=== PATIENT | male | born 1950 | race Caucasian/White ===

== ENCOUNTER → 2023-09-16 08:35 | Outpatient (CLI) | payer MEDICARE, OTHER, SELFPAY ==
[2023-09-16 09:07] LABS: Estimated Glomerular Filt Rate 49 mL/min (>60)
--- NOTE | 2023-09-16 09:19 | DI.CT.S_ITS ---
PROCEDURE: CT ANGIO CHEST INDICATIONS: Thoracic aortic ectasia TECHNIQUE: After the administration of intravenous contrast, 2 mm thick sections acquired from the pulmonary apices to the posterior costophrenic angles. 3-dimensional maximum intensity projection (MIP) coronal and sagittal reformats were then acquired through the thorax. For radiation dose reduction, the following was used: automated exposure control, adjustment of mA and/or kV according to patient size. COMPARISON: None. FINDINGS: Image quality: Diagnostic. Aorta, pulmonary arteries: Atherosclerotic vascular calcifications throughout the aorta without evidence of thoracic aortic aneurysm or dissection. Thoracic aorta measures maximum of 3.7 cm in thickness. Pulmonary arteries are normal in size. Lower Neck: No enlarged lymph nodes. Thyroid: No thyroid nodules which require sonographic follow up, per consensus guidelines. Axillae: No enlarged lymph nodes. Chest Wall: Unremarkable. Bones: Severe degenerative disc disease in the region of C6-C7 with disc space destruction, osteophytes, subchondral sclerosis and cystg Lungs and Pleura: No pneumothorax or pleural effusions. No consolidation or suspicious nodules. 3 mm left juxtapleural nodule, benign (253/5). Heart: Heart size is normal. No pericardial effusion. Thoracic Vessels: No aortic aneurysm. Descending aorta measures 3.6 cm in maximum dimension. Moderate atherosclerotic vascular calcifications are seen. Mediastinum and Shyanne: No enlarged lymph nodes. Esophagus: No wall thickening. No hiatal hernia. Upper Abdomen: Visualized upper abdomen solid organs and bowel loops appear normal. IMPRESSION: 1. Ascending thoracic aorta measures 3.7 cm in maximum dimension; no evidence of significant ectasia 2. Severe atherosclerotic vascular calcifications throughout the aorta 3. Severe degenerative disc disease in the region of C6-C7 of the C-spine 1. Dictated by: Favian Vázquez M.D. on 10/07/2023 at 11:01 Approved by: Favian Vázquez M.D. on 10/07/2023 at 11:42
== END ==
PROVIDERS: Radiology Diagnostic Radiology; PCP Physician Assistant; Referring Provider Internal Medicine Cardiovascular Disease; Visit Provider Internal Medicine Cardiovascular Disease
DX: I77.810 Thoracic aortic ectasia (principal); I70.0 Atherosclerosis of aorta; M50.323 Other cervical disc degeneration at C6-C7 level
CPT/HCPCS: 36415; 71275; 82565

== ENCOUNTER → 2024-08-15 12:24 | Outpatient (CLI) | payer MEDICARE, OTHER, SELFPAY ==
--- NOTE | 2024-08-15 12:26 | DI.ECHO.S_ITS ---
[facility]+ [facility] : : [address] : : [place] : : [id number] : : Phone: [phone] Echocardiogram Report + + :Name: MAYRA NORTH Study Date: 08/15/2024 Height: 67 in : :[facility] ReadingLocation: Weight: 167 lb : : Gender: Male BSA: 1.9 m2 : :: 1950 Age: 74 yrs BP: 136/79 mmHg: :Reason For Study: CARDIAC ARRHYTHMIA : :Ordering Physician: JOSH, : :JINNY Heck Performed By: Sonia Ball : :Referring: JINNY NELSON : + + Interpretation Summary The ejection fraction is estimated to be 60-65%. Diastolic parameters suggest probable normal left ventricular diastolic function and normal filling pressures. The left atrium is mildly dilated. The right ventricle is normal in size and function. There is mild tricuspid regurgitation. The right ventricular systolic pressure is estimated to be at least 31 mmHg based on an estimated right atrial pressure of 3 mm Hg. Compared to the prior study dated 02/19/2023, the right ventricle no longer appears dilated. Procedure: A two-dimensional transthoracic echocardiogram with color flow and Doppler was performed. The study quality was technically adequate. Comparison is made with the echocardiogram of 02/19/2023. The patient was in sinus bradycardia with heart rates between 52-60 bpm during the exam. Left Ventricle: The left ventricle is normal in size and wall thickness. The ejection fraction is estimated to be 60-65%. Diastolic parameters suggest probable normal left ventricular diastolic function and normal filling pressures. Right Ventricle: The right ventricle is normal in size and function. Atria: The left atrium is mildly dilated. Right atrial size is normal. There is no Doppler evidence for an interatrial shunt. Mitral Valve: The mitral valve leaflets appear mildly thickened, but open well. The mitral valve leaflets appear to open well. There is trace mitral regurgitation. Aortic Valve: The aortic valve is trileaflet. The aortic valve opens well. There is no aortic valve stenosis. No aortic regurgitation is present. Tricuspid Valve: The tricuspid valve leaflets are thin and pliable. There is mild tricuspid regurgitation. The right ventricular systolic pressure is estimated to be at least 31 mmHg based on an estimated right atrial pressure of 3 mm Hg. Pulmonic Valve: The pulmonic valve leaflets are thin and pliable; valve motion is normal. There is mild to moderate pulmonic regurgitation. Great Vessels: The aortic root is normal size. The dimensions of the ascending aorta are normal. The IVC is of normal diameter and collapses greater than 50% with a sniff. This suggests a low right atrial pressure of 3 mm Hg. Pericardium/ Pleura There is no pericardial effusion. There is no pleural effusion. MMode/2D Measurements & Calculations LVIDd: 5.2 cm LVOT diam: 2.0 cm LVIDs: 3.4 cm Ao root diam: 3.5 cm FS: 35.2 % asc Aorta Diam: 3.6 cm EPSS: 0.70 cm Ao Arch Diam (Prox Trans): 3.7 cm IVSd: 0.67 cm LVPWd: 0.75 cm LV ivan. diameter/BSA (cm/m^2): 2.8 LV sys. diameter/BSA (cm/m^2): 1.8 LA A2 area: 22.0 cm2 RA long axis: 6.0 cm LA A4 area: 22.5 cm2 RA area: 19.4 cm2 LA length (vol): 6.2 cm RA vol: 53.7 ml LA vol: 67.5 ml RA : 28.6 ml/m2 LA vol index: 36.0 ml/m2 IVC diam: 1.6 cm RVD1 (basal): 3.6 cm RVD2 (mid): 3.0 cm TAPSE: 2.4 cm Doppler Measurements & Calculations Ao V2 max: 136.1 cm/sec LVOT Max Angel: 100.9 cm/sec Ao V2 mean: 84.2 cm/sec LV V1 max P.1 mmHg Ao max P.4 mmHg LV V1 VTI: 21.3 cm Ao mean P.3 mmHg CARLOS ENRIQUE(I,D): 2.3 cm2 Ao V2 VTI: 27.2 cm CARLOS ENRIQUE(V,D): 2.2 cm2 sev ratio: 0.78 CARLOS ENRIQUE indexed to BSA (cm^2/m^2): 1.3 MV E max angel: 91.5 cm/sec TR max angel: 266.6 cm/sec MV A max angel: 66.4 cm/sec TR max P.4 mmHg MV E/A: 1.4 PA V2 max: 127.3 cm/sec Med Peak E' Angel: 7.5 cm/sec PA V2 mean: 82.9 cm/sec E/E' med: 12.2 PA mean P.2 mmHg Lat Peak E' Angel: 11.8 cm/sec PA pr(Accel): 12.2 mmHg E/E' lat: 7.8 E/e' average: 10.0 MV dec time: 0.18 sec SVLVOT): 63.8 ml Reading Physician:03:02 PM
== END ==
PROVIDERS: Referring Provider Internal Medicine Cardiovascular Disease; Visit Provider Internal Medicine Cardiovascular Disease
DX: I48.0 Paroxysmal atrial fibrillation (principal); I07.1 Rheumatic tricuspid insufficiency
CPT/HCPCS: 93306

== ENCOUNTER → 2024-08-15 12:27 | Outpatient (CLI) | payer MEDICARE, OTHER, SELFPAY ==
--- NOTE | 2024-08-15 12:28 | DI.CT.S_ITS ---
PROCEDURE: CT CHEST WO CON INDICATIONS: SOLITARY PULMONARY NODULE TECHNIQUE: Noncontrast 5 mm thick sections acquired from the pulmonary apices to the posterior costophrenic angles. 1 mm lung window, 5 mm thick coronal and sagittal and 7 mm axial MIP reformats were then acquired. For radiation dose reduction, the following was used: automated exposure control, adjustment of mA and/or kV according to patient size. COMPARISON: [facility], CT, CT ANGIO CHEST, 09/16/2023, 9:18. FINDINGS: Image quality: Diagnostic. Lower Neck: No enlarged lymph nodes. Thyroid: No thyroid nodules which require sonographic follow up, per consensus guidelines. Axillae: No enlarged lymph nodes. Chest Wall: Unremarkable. Bones: No suspicious osseous lesion. Lungs and Pleura: No pneumothorax or pleural effusions. No consolidation or suspicious nodules. Tiny left lower lobe subpleural pulmonary nodule, (3/247), unchanged. Central airways are clear. Mild emphysematous change. Heart: Heart size is normal. Moderate LAD coronary artery calcifications. No pericardial effusion. Thoracic Vessels: The aorta and pulmonary arteries demonstrate normal size. Mediastinum and Shyanne: No enlarged lymph nodes. Esophagus: No wall thickening. No hiatal hernia. Upper Abdomen: Visualized upper abdomen solid organs and bowel loops appear normal. IMPRESSION: 1. No significant pulmonary nodules. No adenopathy. 2. No acute airspace opacity. Dictated by: Randall Romero M.D. on 08/15/2024 at 17:50 Approved by: Randall Romero M.D. on 08/15/2024 at 18:00
== END ==
LOC: CT 12:27
DX: I07.1 Rheumatic tricuspid insufficiency (principal); I48.0 Paroxysmal atrial fibrillation; R91.1 Solitary pulmonary nodule; I25.10 Atherosclerotic heart disease of native coronary artery without angina pectoris
CPT/HCPCS: 71250; 93306

== ENCOUNTER → 2025-07-31 07:31 | Outpatient (CLI) | payer MEDICARE, OTHER, SELFPAY ==
--- NOTE | 2025-07-31 07:32 | DI.ECHO.S_ITS ---
[facility] +---------+ [facility] : : [address] : : [place] : : [id number] : : Phone: [phone] Echocardiogram Report + + :Name: MAYRA NORTH Study Date: 07/31/2025 Height: 67 in : :[facility] ReadingLocation: Weight: 165 lb : : Gender: Male BSA: 1.9 m2 : :: 1950 Age: 75 yrs BP: 153/81 mmHg: :Reason For Study: CHEST PAIN : :Ordering Physician: JOSH, : :JINNY Heck Performed By: Vasyl Mckinnon : :Referring: JINNY NELSON : + + Interpretation Summary The ejection fraction is estimated to be 55-60%. Diastolic function is indeterminate. The left atrium is moderately dilated. The right ventricle is normal in size and function. The right atrium is mildly dilated. There is mild mitral regurgitation. There is mild tricuspid regurgitation. The right ventricular systolic pressure is estimated to be at least 36 mmHg based on an estimated right atrial pressure of 3 mm Hg. The ascending aorta is mildly enlarged. Compared to the prior study 08/15/2024, the left atrium has increased in size. Procedure: A two-dimensional transthoracic echocardiogram with color flow and Doppler was performed. The study quality was technically good. There is no prior echocardiogram noted for this patient. The patient was in normal sinus rhythm during the exam. Left Ventricle: The left ventricle is normal in size. There is normal left ventricular wall thickness. There is no ventricular septal defect visualized. The ejection fraction is estimated to be 55-60%. There are no focal wall motion abnormalities. Diastolic function is indeterminate. Right Ventricle: The right ventricle is normal in size and function. Atria: The left atrium is moderately dilated. The right atrium is mildly dilated. There is no Doppler evidence for an atrial septal defect. Mitral Valve: The mitral valve leaflets appear normal. There is no evidence of stenosis, fluttering, or prolapse. There is mild mitral regurgitation. Aortic Valve: The aortic valve is trileaflet. The aortic valve opens well. There is no aortic valve stenosis. No aortic regurgitation is present. Tricuspid Valve: The tricuspid valve leaflets are thin and pliable. There is mild tricuspid regurgitation. The right ventricular systolic pressure is estimated to be at least 36 mmHg based on an estimated right atrial pressure of 3 mm Hg. Pulmonic Valve: The pulmonic valve leaflets are thin and pliable; valve motion is normal. There is mild pulmonic regurgitation. Great Vessels: The aortic root is normal size. The ascending aorta is mildly enlarged. The pulmonary artery is normal size. The IVC is of normal diameter and collapses greater than 50% with a sniff. This suggests a low right atrial pressure of 3 mm Hg. Pericardium/ Pleura There is no pericardial effusion. There is no pleural effusion. MMode/2D Measurements & Calculations LVIDd: 5.0 cm LVOT diam: 2.1 cm LVIDs: 3.2 cm Ao root diam: 3.5 cm FS: 35.1 % asc Aorta Diam: 3.7 cm EPSS: 0.86 cm Ao Arch Diam (Prox Trans): 1.7 cm IVSd: 1.0 cm LVPWd: 0.91 cm LV ivan. diameter/BSA (cm/m^2): 2.7 LV sys. diameter/BSA (cm/m^2): 1.7 LA A2 area: 25.9 cm2 RA long axis: 6.6 cm LA A4 area: 21.8 cm2 RA area: 21.3 cm2 LA length (vol): 5.7 cm RA vol: 58.7 ml LA vol: 84.1 ml RA : 31.5 ml/m2 LA vol index: 45.1 ml/m2 IVC diam: 1.7 cm RVD1 (basal): 4.0 cm RVD2 (mid): 3.9 cm TAPSE: 2.8 cm Doppler Measurements & Calculations Ao V2 max: 137.8 cm/sec LVOT Max Angel: 106.3 cm/sec Ao V2 mean: 85.9 cm/sec LV V1 max P.5 mmHg Ao max P.6 mmHg LV V1 VTI: 24.6 cm Ao mean P.4 mmHg CARLOS ENRIQUE(I,D): 2.4 cm2 Ao V2 VTI: 33.7 cm CARLOS ENRIQUE(V,D): 2.6 cm2 sev ratio: 0.73 CARLOS ENRIQUE indexed to BSA (cm^2/m^2): 1.3 MV E max angel: 91.9 cm/sec TR max angel: 287.5 cm/sec MV A max angel: 40.7 cm/sec TR max P.1 mmHg MV E/A: 2.3 PA V2 max: 117.6 cm/sec Med Peak E' Angel: 8.0 cm/sec PA V2 mean: 76.8 cm/sec E/E' med: 11.5 PA mean P.6 mmHg Lat Peak E' Angel: 10.6 cm/sec PA pr(Accel): 37.9 mmHg E/E' lat: 8.6 E/e' average: 10.1 MV dec time: 0.17 sec SV(OT): 82.5 ml Reading Physician:12:58 PM
--- NOTE | 2025-07-31 07:33 | DI.NM.S_ITS ---
PROCEDURE: NM GRADY PERF SPECT REST & STR Rest and exercise myocardial perfusion SPECT with gated imaging and ejection fraction RADIOPHARMACEUTICAL: 12.6 mCi Tc-99m sestamibi IV at rest and 27.0 mCi Tc-99m sestamibi IV at peak exercise. A 1 day-protocol was performed. INDICATIONS: Chest pain; dyspnea TECHNIQUE: Radiopharmaceutical was injected at peak stress test, and also at rest. SPECT images were obtained. SPECT myocardial perfusion images were displayed in short axis, horizontal long axis, and vertical long axis views. Gated images were reviewed using [employer] software. COMPARISON: None. CARDIAC STRESS: A standard [place] treadmill exercise tolerance test was performed by the patient under the supervision of an attending staff. The patient exercised for 7 minutes and 18 seconds; 10.1 METS; functional aerobic impairment (LIAM) is -26%. Hemodynamic data: There is normal heart rate response to exercise stress. Borderline hypertensive response to exercise, 200/90. Patient achieved 85% of maximum predicted heart rate at peak exercise. Symptoms: Patient reported 5 out of 10 chest tightness radiating to the jaw during exercise and in early recovery. The patient was observed to have severe dyspnea on exertion. EKG: Rest ECG sinus bradycardia 57 bpm. Exercise ECG sinus tachycardia, no ST segment depressions, anterior peaked T waves. FINDINGS: Raw data: There is good myocardial labeling by radiotracer. No significant motion artifacts. Wthb-[id number]-chnbq ratio is 0.36 (normal is less than 0.38 for sestamibi tracer, and less than 0.50 for thallium tracer). Left ventricle function: Gated images demonstrate normal left ventricle wall thickening. No segmental wall motion abnormality. No transient ischemic dilation; TID is 0.82 (normal less than 1.3). The left ventricle resting end-diastolic volume is 118 mL. Left ventricle stress ejection fraction is 70%; normal values are above 45%. Myocardial perfusion: There is normal distribution of activity in the left and right ventricular myocardium. No fixed or reversible perfusion defects. IMPRESSION: Equivocal study. Abnormal exercise ECG with peaked T waves in the anterior leads at peak exercise and into recovery. Exercise-induced chest discomfort radiating to the jaw. Severe dyspnea on exertion. No evidence of exercise-induced ischemia on SPECT imaging. Normal LV size and function. Dictated by: Jinny Nelson D.O. on 07/31/2025 at 17:19 Approved by: Jinny Nelson D.O. on 07/31/2025 at 17:26
== END ==
LOC: NUCM 07:32
PROVIDERS: Visit Provider Internal Medicine Cardiovascular Disease
DX: I08.1 Rheumatic disorders of both mitral and tricuspid valves (principal); I77.89 Other specified disorders of arteries and arterioles; R07.9 Chest pain, unspecified; R94.31 Abnormal electrocardiogram [ECG] [EKG]
CPT/HCPCS: 78452; 93017; 93306; A9502